=== PATIENT | female | born 1950 | race Caucasian/White ===

== ENCOUNTER 2022-08-22 18:40 | Emergency (ER) | payer BC, MEDICAID ==
[~2022-08-22] VITALS: Ht 152.4 cm; Wt 52.6 kg
[2022-08-22 20:15] VITALS: BP_SYST 155
--- NOTE | 2022-08-22 20:15 | NUR ---
Triaged and placed patient to ER bed 8. VSS. Son at bedside. Informed patient to notify ED staff for any changes in condition or worsening of symptoms while waiting to be seen by a provider. Patient verbalized understanding.
--- NOTE | 2022-08-22 21:18 | NUR ---
COVID SWAB COLLECTED AND SENT TO LAB.
--- NOTE | 2022-08-22 21:20 | NUR ---
Pt BIB family to ED C/O having tested positive for COVID at home, and now is experiencing COVID s/s. VSS no acute distress
--- NOTE | 2022-08-22 22:25 | NUR ---
Dr Tamayo bedside for Pt Eval
[2022-08-22 22:48] VITALS: BP_SYST 148
--- NOTE | 2022-08-22 22:48 | NUR ---
Patient given written and verbal discharge instructions and verbalizes understanding. ER MD discussed with patient the results and treatment provided. Patient in stable condition. ID arm band removed. Patient educated on pain management and to follow up with PMD. Pain Scale 0/10 Opportunity for questions provided and answered.
== END 2022-08-22 22:48 | disposition home or self-care (01) ==
LOC: SED 18:40
DX: U07.1 COVID-19 (principal); J12.89 Other viral pneumonia; R05.9 Cough, unspecified; R06.02 Shortness of breath; J45.909 Unspecified asthma, uncomplicated; Z79.899 Other long term (current) drug therapy; Z20.822 Contact with and (suspected) exposure to COVID-19
CPT/HCPCS: 36415; 93005; 99284